=== PATIENT | female | born 1965 | race Caucasian/White ===

== ENCOUNTER 2018-07-11 16:44 | Inpatient (IN) | payer OTHER ==
[2018-07-11 17:29] LABS: ADD UMIC YES; UR ASCORBIC ACID NEGATIVE (NEGATIVE); UR BACTERIA FEW /HPF (NONE SEEN); UR BILIRUBIN (Dip) NEGATIVE (NEGATIVE); UR BLOOD (Dip) NEGATIVE (NEGATIVE); UR CLARITY CLOUDY (CLEAR); UR COLOR YELLOW (YELLOW); UR GLUCOSE (Dip) NEGATIVE (NEGATIVE); UR KETONES (Dip) NEGATIVE (NEGATIVE); UR LEUKOCYTE ESTERASE (Dip) 3+ Leu/ul (NEGATIVE); UR NITRITE (Dip) NEGATIVE (NEGATIVE); UR RBC 4 /HPF (0-5); UR TOTAL PROTEIN (Dip) NEGATIVE (NEGATIVE); UR UROBILINOGEN (Dip) NEGATIVE (NEGATIVE); UR WBC > 182 /HPF (0-5)
[2018-07-11 17:32] LABS: ADD MAN DIFF? NO
[2018-07-11 17:37] LABS: BASOPHILS % 0.3 % (0.0-2.0); EOSINOPHILS % 0.1 % (0.0-7.0); HEMATOCRIT 35.6 % (37.0-47.0); HEMOGLOBIN 11.7 g/dl (12.0-16.0); LYMPHOCYTES # 1.1 10^3/ul (0.8-2.9); LYMPHOCYTES % 8.5 % (15.0-51.0); MEAN CORPUSCULAR HEMOGLOBIN 28.5 pg (29.0-33.0); MEAN CORPUSCULAR HGB CONC 32.9 g/dl (32.0-37.0); MEAN CORPUSCULAR VOLUME 86.6 fl (82.0-101.0); MEAN PLATELET VOLUME 8.9 fl (7.4-10.4); MONOCYTE # 0.6 10^3/ul (0.3-0.9); MONOCYTES % 4.4 % (0.0-11.0); NEUTROPHIL # 11.6 10^3/ul (1.6-7.5); PLATELET COUNT 390 10^3/UL (140-415); RED BLOOD COUNT 4.11 10^6/ul (4.20-5.40); RED CELL DISTRIBUTION WIDTH 14.6 % (11.5-14.5)
[2018-07-11 17:37] LABS: WHITE BLOOD COUNT 13.4 10^3/ul (4.8-10.8)
[2018-07-11] MEDS: ONDANSETRON 4 MG INJ IV (17:42)
[2018-07-11] MEDS: SODIUM CHLORIDE 0.9% 1L BAG IV* (17:43)
[2018-07-11] MEDS: KETOROLAC 15 MG INJ IV (17:43)
[2018-07-11] MEDS: ACETAMINOPHEN 325 MG TAB PO (17:44)
[2018-07-11] MEDS: PIPER-TAZO 3.375 GM IV (PMX) 100 ML IVPB ×2 (17:45→23:52)
[2018-07-11 17:56] LABS: ALANINE AMINOTRANSFERASE 38 IU/L (13-69); ALBUMIN 3.5 g/dl (3.3-4.9); ALBUMIN/GLOBULIN RATIO 0.79; ALKALINE PHOSPHATASE 124 IU/L (42-121); ANION GAP 14 (5-13); ASPARTATE AMINO TRANSFERASE 44 IU/L (15-46); BILIRUBIN,INDIRECT 0.1 mg/dl (0-1.1); BILIRUBIN,TOTAL 0.1 mg/dl (0.2-1.3); BLOOD UREA NITROGEN 12 mg/dl (7-20); CALCIUM 9.3 mg/dl (8.4-10.2); CARBON DIOXIDE 25 mmol/L (21-31); CHLORIDE 100 mmol/L (97-110); CREATININE 0.78 mg/dl (0.44-1.00); Estimated GFR > 60 mL/min (>60); GLUCOSE 130 mg/dl (70-220); INR 1.02; LIPASE 209 U/L (23-300); POTASSIUM 3.9 mmol/L (3.5-5.1); PROTIME 13.5 Sec (11.9-14.9); PT RATIO 1.1; SODIUM 139 mmol/L (135-144); TOTAL PROTEIN 7.9 g/dl (6.1-8.1)
[2018-07-11 17:57] LABS: PARTIAL THROMBOPLASTIN TIME 29.5 Sec (23.0-35.0)
[2018-07-11] MEDS ORDERED: LORAZEPAM 2 MG INJ IV (19:30)
[2018-07-11] MEDS ORDERED: DOCUSATE SODIUM 100 MG CAP PO (19:30)
[2018-07-11] MEDS ORDERED: ALBUTEROL/IPRATROPIUM (NEB) 3 ML AMP HHN (19:30)
[2018-07-11] MEDS ORDERED: morphine 2 MG INJ IV (19:30)
[2018-07-11] MEDS ORDERED: NA PHOSPHATE/BIPHOS 133 ML ENEMA PR (19:30)
[2018-07-11] MEDS ORDERED: NACL 0.9% 3 ML SYG IV (19:30)
[2018-07-11] MEDS ORDERED: NITROGLYCERIN (SL) 0.4 MG TAB SL (19:30)
[2018-07-11] MEDS ORDERED: ACETAMINOPHEN 325 MG TAB PO (20:00)
[2018-07-11] MEDS ORDERED: ONDANSETRON 4 MG INJ IV (20:00)
[2018-07-11] MEDS: HYDROmorphONE 0.5 MG/0.5 ML SYG IV (20:16)
[2018-07-11] MEDS: SOD CHLORIDE 0.9% 1,000 ML IV (20:27)
[2018-07-11] MEDS: HEPARIN SODIUM 5,000 UNIT/ML VIAL SC (21:25)
[2018-07-11 21:27] LABS: LACTIC ACID 1.1 mmol/L (0.5-2.0)
[2018-07-11 22:59] LABS: LACTIC ACID 1.2 mmol/L (0.5-2.0)
[2018-07-12] MEDS: ACETAMINOPHEN 325 MG TAB PO (02:06)
[2018-07-12 02:21] LABS: LACTIC ACID 1.3 mmol/L (0.5-2.0)
[2018-07-12] MEDS: SOD CHLORIDE 0.9% 1,000 ML IV ×3 (05:23→18:25)
[2018-07-12] MEDS: PANTOPRAZOLE 40 MG INJ IV (05:24)
[2018-07-12] MEDS: PIPER-TAZO 3.375 GM IV (PMX) 100 ML IVPB ×3 (05:24→18:25)
[2018-07-12] MEDS ORDERED: HEPARIN 5,000 UNIT/0.5 ML VIAL (07:37)
[2018-07-12] MEDS: HYDROCODONE/APAP (5/325) TAB PO ×4 (07:45→22:27)
[2018-07-12] MEDS: HEPARIN SODIUM 5,000 UNIT/ML VIAL SC (08:26)
[2018-07-12 08:51] LABS: ADD MAN DIFF? NO
[2018-07-12 08:54] LABS: BASOPHILS % 0.2 % (0.0-2.0); EOSINOPHILS % 0.1 % (0.0-7.0); HEMATOCRIT 33.3 % (37.0-47.0); HEMOGLOBIN 10.7 g/dl (12.0-16.0); LYMPHOCYTES # 1.5 10^3/ul (0.8-2.9); LYMPHOCYTES % 9.6 % (15.0-51.0); MEAN CORPUSCULAR HEMOGLOBIN 28.3 pg (29.0-33.0); MEAN CORPUSCULAR HGB CONC 32.1 g/dl (32.0-37.0); MEAN CORPUSCULAR VOLUME 88.1 fl (82.0-101.0); MEAN PLATELET VOLUME 9.4 fl (7.4-10.4); MONOCYTE # 0.9 10^3/ul (0.3-0.9); MONOCYTES % 5.7 % (0.0-11.0); NEUTROPHIL # 12.8 10^3/ul (1.6-7.5); NEUTROPHILS % 83.8 % (39.0-77.0); PLATELET COUNT 344 10^3/UL (140-415); RED BLOOD COUNT 3.78 10^6/ul (4.20-5.40); RED CELL DISTRIBUTION WIDTH 14.8 % (11.5-14.5)
[2018-07-12 08:54] LABS: WHITE BLOOD COUNT 15.2 10^3/ul (4.8-10.8)
[2018-07-12 09:09] LABS: HEMOGLOBIN A1C 5.4 % (0-5.9)
[2018-07-12 09:13] LABS: ANION GAP 6 (5-13); BLOOD UREA NITROGEN 8 mg/dl (7-20); CALCIUM 8.1 mg/dl (8.4-10.2); CARBON DIOXIDE 24 mmol/L (21-31); CHLORIDE 109 mmol/L (97-110); Estimated GFR > 60 mL/min (>60); GLUCOSE 98 mg/dl (70-220); MAGNESIUM 2.1 mg/dl (1.7-2.5); PHOSPHORUS 3.5 mg/dl (2.5-4.9); POTASSIUM 3.6 mmol/L (3.5-5.1); SODIUM 139 mmol/L (135-144)
[2018-07-12 09:18] LABS: LACTIC ACID 0.8 mmol/L (0.5-2.0)
[2018-07-12 12:18] LABS: CHOL/HDL RATIO 4.4 RATIO; HDL CHOLESTEROL 21 mg/dl (37-92); LDL CHOLESTEROL,CALCULATED 56 mg/dl; TRIGLYCERIDES 80 mg/dl (0-149)
[2018-07-12 12:18] LABS: CHOLESTEROL 93 mg/dl (100-200)
[2018-07-12 14:48] LABS: LACTIC ACID 0.9 mmol/L (0.5-2.0)
[2018-07-13] MEDS: PIPER-TAZO 3.375 GM IV (PMX) 100 ML IVPB ×2 (00:07→06:08)
[2018-07-13] MEDS: SOD CHLORIDE 0.9% 1,000 ML IV ×4 (01:28→21:28)
[2018-07-13] MEDS: HYDROCODONE/APAP (5/325) TAB PO ×5 (04:16→22:49)
[2018-07-13 05:44] LABS: ADD MAN DIFF? NO
[2018-07-13 05:53] LABS: WHITE BLOOD COUNT 8.8 10^3/ul (4.8-10.8)
[2018-07-13 05:53] LABS: BASOPHILS % 0.3 % (0.0-2.0); EOSINOPHILS # 0.1 10^3/ul (0.0-0.5); EOSINOPHILS % 1.5 % (0.0-7.0); HEMATOCRIT 35.8 % (37.0-47.0); HEMOGLOBIN 11.3 g/dl (12.0-16.0); LYMPHOCYTES # 1.7 10^3/ul (0.8-2.9); LYMPHOCYTES % 19.5 % (15.0-51.0); MEAN CORPUSCULAR HEMOGLOBIN 28.1 pg (29.0-33.0); MEAN CORPUSCULAR HGB CONC 31.6 g/dl (32.0-37.0); MEAN CORPUSCULAR VOLUME 89.1 fl (82.0-101.0); MEAN PLATELET VOLUME 9.6 fl (7.4-10.4); MONOCYTE # 0.7 10^3/ul (0.3-0.9); MONOCYTES % 8.2 % (0.0-11.0); NEUTROPHIL # 6.2 10^3/ul (1.6-7.5); NEUTROPHILS % 69.9 % (39.0-77.0); PLATELET COUNT 377 10^3/UL (140-415); RED BLOOD COUNT 4.02 10^6/ul (4.20-5.40); RED CELL DISTRIBUTION WIDTH 14.7 % (11.5-14.5)
[2018-07-13] MEDS: PANTOPRAZOLE 40 MG INJ IV (06:09)
[2018-07-13 06:15] LABS: ANION GAP 7 (5-13); BLOOD UREA NITROGEN 7 mg/dl (7-20); CALCIUM 8.8 mg/dl (8.4-10.2); CARBON DIOXIDE 26 mmol/L (21-31); CHLORIDE 107 mmol/L (97-110); CREATININE 0.65 mg/dl (0.44-1.00); Estimated GFR > 60 mL/min (>60); GLUCOSE 86 mg/dl (70-220); POTASSIUM 4.3 mmol/L (3.5-5.1); SODIUM 140 mmol/L (135-144)
[2018-07-13] MEDS: CEFTRIAXONE 1 GM/50 ML (PMX) 50 ML IVPB (12:45)
[2018-07-13] MEDS: MAGNESIUM HYDROXIDE 30ML CUP PO (20:31)
[2018-07-14] MEDS: HYDROCODONE/APAP (5/325) TAB PO ×4 (02:43→21:11)
[2018-07-14] MEDS: SOD CHLORIDE 0.9% 1,000 ML IV ×3 (02:44→23:42)
[2018-07-14] MEDS: PANTOPRAZOLE 40 MG INJ IV (05:46)
[2018-07-14 06:37] LABS: ADD MAN DIFF? NO
[2018-07-14 06:44] LABS: WHITE BLOOD COUNT 7.6 10^3/ul (4.8-10.8)
[2018-07-14 06:44] LABS: BASOPHILS % 0.4 % (0.0-2.0); EOSINOPHILS # 0.2 10^3/ul (0.0-0.5); HEMATOCRIT 34.9 % (37.0-47.0); HEMOGLOBIN 11.4 g/dl (12.0-16.0); LYMPHOCYTES # 2.1 10^3/ul (0.8-2.9); LYMPHOCYTES % 27.3 % (15.0-51.0); MEAN CORPUSCULAR HEMOGLOBIN 28.6 pg (29.0-33.0); MEAN CORPUSCULAR HGB CONC 32.7 g/dl (32.0-37.0); MEAN CORPUSCULAR VOLUME 87.5 fl (82.0-101.0); MEAN PLATELET VOLUME 9.7 fl (7.4-10.4); MONOCYTE # 0.6 10^3/ul (0.3-0.9); MONOCYTES % 7.4 % (0.0-11.0); NEUTROPHIL # 4.8 10^3/ul (1.6-7.5); NEUTROPHILS % 62.4 % (39.0-77.0); PLATELET COUNT 401 10^3/UL (140-415); RED BLOOD COUNT 3.99 10^6/ul (4.20-5.40); RED CELL DISTRIBUTION WIDTH 14.7 % (11.5-14.5)
[2018-07-14 07:09] LABS: ANION GAP 10 (5-13); BLOOD UREA NITROGEN 9 mg/dl (7-20); CARBON DIOXIDE 25 mmol/L (21-31); CHLORIDE 106 mmol/L (97-110); CREATININE 0.63 mg/dl (0.44-1.00); Estimated GFR > 60 mL/min (>60); GLUCOSE 104 mg/dl (70-220); POTASSIUM 4.1 mmol/L (3.5-5.1); SODIUM 141 mmol/L (135-144)
[2018-07-14] MEDS: CEFTRIAXONE 1 GM/50 ML (PMX) 50 ML IVPB (12:05)
[2018-07-15] MEDS: HYDROCODONE/APAP (5/325) TAB PO ×4 (01:08→20:52)
[2018-07-15] MEDS: PANTOPRAZOLE 40 MG INJ IV (05:35)
[2018-07-15 06:02] LABS: ADD MAN DIFF? NO
[2018-07-15 06:09] LABS: BASOPHILS % 0.7 % (0.0-2.0); EOSINOPHILS # 0.2 10^3/ul (0.0-0.5); EOSINOPHILS % 2.7 % (0.0-7.0); HEMATOCRIT 35.5 % (37.0-47.0); HEMOGLOBIN 11.5 g/dl (12.0-16.0); LYMPHOCYTES # 1.8 10^3/ul (0.8-2.9); LYMPHOCYTES % 31.6 % (15.0-51.0); MEAN CORPUSCULAR HEMOGLOBIN 28.6 pg (29.0-33.0); MEAN CORPUSCULAR HGB CONC 32.4 g/dl (32.0-37.0); MEAN CORPUSCULAR VOLUME 88.3 fl (82.0-101.0); MEAN PLATELET VOLUME 9.6 fl (7.4-10.4); MONOCYTE # 0.4 10^3/ul (0.3-0.9); MONOCYTES % 7.9 % (0.0-11.0); NEUTROPHIL # 3.1 10^3/ul (1.6-7.5); NEUTROPHILS % 56.7 % (39.0-77.0); PLATELET COUNT 386 10^3/UL (140-415); RED BLOOD COUNT 4.02 10^6/ul (4.20-5.40); RED CELL DISTRIBUTION WIDTH 14.6 % (11.5-14.5)
[2018-07-15 06:09] LABS: WHITE BLOOD COUNT 5.5 10^3/ul (4.8-10.8)
[2018-07-15 06:34] LABS: ANION GAP 8 (5-13); BLOOD UREA NITROGEN 9 mg/dl (7-20); CALCIUM 9.1 mg/dl (8.4-10.2); CARBON DIOXIDE 27 mmol/L (21-31); CHLORIDE 108 mmol/L (97-110); CREATININE 0.58 mg/dl (0.44-1.00); Estimated GFR > 60 mL/min (>60); GLUCOSE 104 mg/dl (70-220); SODIUM 143 mmol/L (135-144)
[2018-07-15 07:03] LABS: POTASSIUM 4.6 mmol/L (3.5-5.1)
[2018-07-15] MEDS: SOD CHLORIDE 0.9% 1,000 ML IV ×2 (10:42→20:52)
[2018-07-15] MEDS: CEFTRIAXONE 1 GM/50 ML (PMX) 50 ML IVPB (12:05)
[2018-07-15] MEDS: MAGNESIUM HYDROXIDE 30ML CUP PO (18:45)
[2018-07-16] MEDS: PANTOPRAZOLE 40 MG INJ IV (05:51)
[2018-07-16] MEDS: HYDROCODONE/APAP (5/325) TAB PO ×2 (05:52→13:55)
[2018-07-16] MEDS: ONDANSETRON 4 MG INJ IV ×3 (05:54→22:06)
[2018-07-16] MEDS: SOD CHLORIDE 0.9% 1,000 ML IV ×2 (06:32→19:02)
[2018-07-16 07:06] LABS: ADD MAN DIFF? NO
[2018-07-16 07:16] LABS: WHITE BLOOD COUNT 4.7 10^3/ul (4.8-10.8)
[2018-07-16 07:16] LABS: BASOPHILS % 0.6 % (0.0-2.0); EOSINOPHILS # 0.1 10^3/ul (0.0-0.5); EOSINOPHILS % 2.5 % (0.0-7.0); HEMATOCRIT 36.5 % (37.0-47.0); HEMOGLOBIN 11.8 g/dl (12.0-16.0); LYMPHOCYTES # 1.7 10^3/ul (0.8-2.9); LYMPHOCYTES % 36.2 % (15.0-51.0); MEAN CORPUSCULAR HEMOGLOBIN 28.4 pg (29.0-33.0); MEAN CORPUSCULAR HGB CONC 32.3 g/dl (32.0-37.0); MEAN CORPUSCULAR VOLUME 87.7 fl (82.0-101.0); MEAN PLATELET VOLUME 9.5 fl (7.4-10.4); MONOCYTE # 0.4 10^3/ul (0.3-0.9); MONOCYTES % 8.5 % (0.0-11.0); NEUTROPHIL # 2.5 10^3/ul (1.6-7.5); NEUTROPHILS % 51.8 % (39.0-77.0); PLATELET COUNT 375 10^3/UL (140-415); RED BLOOD COUNT 4.16 10^6/ul (4.20-5.40); RED CELL DISTRIBUTION WIDTH 14.9 % (11.5-14.5)
[2018-07-16 07:38] LABS: ANION GAP 10 (5-13); BLOOD UREA NITROGEN 7 mg/dl (7-20); CALCIUM 9.3 mg/dl (8.4-10.2); CARBON DIOXIDE 28 mmol/L (21-31); CHLORIDE 107 mmol/L (97-110); CREATININE 0.57 mg/dl (0.44-1.00); Estimated GFR > 60 mL/min (>60); GLUCOSE 96 mg/dl (70-220); POTASSIUM 4.3 mmol/L (3.5-5.1); SODIUM 145 mmol/L (135-144)
[2018-07-16] MEDS: CEFTRIAXONE 1 GM/50 ML (PMX) 50 ML IVPB (12:03)
[2018-07-16] MEDS: ACETAMINOPHEN 325 MG TAB PO (21:03)
[2018-07-17] MEDS: SOD CHLORIDE 0.9% 1,000 ML IV ×2 (05:13→16:45)
[2018-07-17 06:32] LABS: ADD MAN DIFF? NO
[2018-07-17 06:37] LABS: WHITE BLOOD COUNT 4.7 10^3/ul (4.8-10.8)
[2018-07-17 06:37] LABS: BASOPHILS % 0.4 % (0.0-2.0); EOSINOPHILS # 0.1 10^3/ul (0.0-0.5); EOSINOPHILS % 2.3 % (0.0-7.0); HEMATOCRIT 36.7 % (37.0-47.0); HEMOGLOBIN 11.9 g/dl (12.0-16.0); LYMPHOCYTES # 1.7 10^3/ul (0.8-2.9); LYMPHOCYTES % 36.7 % (15.0-51.0); MEAN CORPUSCULAR HEMOGLOBIN 28.5 pg (29.0-33.0); MEAN CORPUSCULAR HGB CONC 32.4 g/dl (32.0-37.0); MEAN CORPUSCULAR VOLUME 87.8 fl (82.0-101.0); MEAN PLATELET VOLUME 9.7 fl (7.4-10.4); MONOCYTE # 0.4 10^3/ul (0.3-0.9); MONOCYTES % 9.3 % (0.0-11.0); NEUTROPHIL # 2.4 10^3/ul (1.6-7.5); NEUTROPHILS % 50.7 % (39.0-77.0); PLATELET COUNT 334 10^3/UL (140-415); RED BLOOD COUNT 4.18 10^6/ul (4.20-5.40)
[2018-07-17] MEDS: PANTOPRAZOLE 40 MG INJ IV (06:49)
[2018-07-17] MEDS: ACETAMINOPHEN 325 MG TAB PO ×2 (06:49→20:57)
[2018-07-17 07:06] LABS: ANION GAP 9 (5-13); BLOOD UREA NITROGEN 6 mg/dl (7-20); CALCIUM 9.6 mg/dl (8.4-10.2); CARBON DIOXIDE 26 mmol/L (21-31); CHLORIDE 107 mmol/L (97-110); CREATININE 0.59 mg/dl (0.44-1.00); Estimated GFR > 60 mL/min (>60); GLUCOSE 106 mg/dl (70-220); POTASSIUM 4.5 mmol/L (3.5-5.1); SODIUM 142 mmol/L (135-144)
[2018-07-17] MEDS: CEFTRIAXONE 1 GM/50 ML (PMX) 50 ML IVPB (12:39)
[2018-07-18] MEDS: SOD CHLORIDE 0.9% 1,000 ML IV ×4 (02:31→23:07)
[2018-07-18 05:21] LABS: ADD MAN DIFF? NO; HAAIG REFLEX REFLEX FILED
[2018-07-18 05:25] LABS: WHITE BLOOD COUNT 5.5 10^3/ul (4.8-10.8)
[2018-07-18 05:25] LABS: BASOPHILS % 0.5 % (0.0-2.0); EOSINOPHILS # 0.1 10^3/ul (0.0-0.5); HEMATOCRIT 36.2 % (37.0-47.0); HEMOGLOBIN 11.7 g/dl (12.0-16.0); LYMPHOCYTES % 35.4 % (15.0-51.0); MEAN CORPUSCULAR HEMOGLOBIN 28.5 pg (29.0-33.0); MEAN CORPUSCULAR HGB CONC 32.3 g/dl (32.0-37.0); MEAN CORPUSCULAR VOLUME 88.1 fl (82.0-101.0); MEAN PLATELET VOLUME 9.5 fl (7.4-10.4); MONOCYTE # 0.5 10^3/ul (0.3-0.9); MONOCYTES % 9.1 % (0.0-11.0); NEUTROPHIL # 2.9 10^3/ul (1.6-7.5); NEUTROPHILS % 52.6 % (39.0-77.0); PLATELET COUNT 307 10^3/UL (140-415); RED BLOOD COUNT 4.11 10^6/ul (4.20-5.40); RED CELL DISTRIBUTION WIDTH 14.9 % (11.5-14.5)
[2018-07-18 05:46] LABS: ANION GAP 8 (5-13); BLOOD UREA NITROGEN 8 mg/dl (7-20); CALCIUM 9.6 mg/dl (8.4-10.2); CARBON DIOXIDE 27 mmol/L (21-31); CHLORIDE 109 mmol/L (97-110); Estimated GFR > 60 mL/min (>60); GLUCOSE 116 mg/dl (70-220); POTASSIUM 4.3 mmol/L (3.5-5.1); SODIUM 144 mmol/L (135-144)
[2018-07-18] MEDS: ACETAMINOPHEN 325 MG TAB PO (06:12)
[2018-07-18 06:14] LABS: HEPATITIS B SURFACE ANTIGEN NEGATIVE (NEGATIVE)
[2018-07-18 06:33] LABS: HEPATITIS B CORE ANTIBODY NEGATIVE (NEGATIVE); HEPATITIS C VIRAL ANTIBODY NEGATIVE (NEGATIVE)
[2018-07-18] MEDS ORDERED: KETOROLAC 30 MG INJ IM (11:41)
[2018-07-18] MEDS: KETOROLAC 30 MG INJ IV (11:56)
[2018-07-18] MEDS: CEFTRIAXONE 1 GM/50 ML (PMX) 50 ML IVPB (11:59)
[2018-07-18] MEDS ORDERED: HYDROmorphONE 0.5 MG/0.5 ML SYG IV (12:00)
[2018-07-18] MEDS ORDERED: IOHEXOL 300MG/ML 30 ML BTL ×2 (17:52→19:07)
[2018-07-18] MEDS ORDERED: FENTAnyl 50 MCG/ML VIAL (20:20)
[2018-07-18] MEDS ORDERED: MIDAZOLAM 1 MG/ML 2 ML INJ (20:20)
[2018-07-18] MEDS: ERTAPENEM SODIUM 1 GM in SOD CHLORIDE 0.9% 100 ML IVPB (21:00)
[2018-07-18] MEDS ORDERED: PROPOFOL 20 ML (21:37)
[2018-07-18] MEDS ORDERED: CEFAZOLIN 1 GM INJ (21:37)
[2018-07-18] MEDS ORDERED: ONDANSETRON 4 MG INJ (21:37)
[2018-07-18] MEDS ORDERED: LIDOCAINE 2% (SDV) 5 ML INJ (21:37)
[2018-07-18] MEDS ORDERED: HYDROmorphONE 1 MG/5 ML IV SYRINGE IV (22:00)
[2018-07-18] MEDS ORDERED: hydrALAzine 20 MG INJ IV (22:00)
[2018-07-18] MEDS ORDERED: METOCLOPRAMIDE 10 MG INJ IV (22:00)
[2018-07-18] MEDS: hydrALAzine 20 MG INJ IV (22:00)
[2018-07-18] MEDS ORDERED: DIPHENHYDRAMINE 50 MG INJ IV (22:00)
[2018-07-18] MEDS ORDERED: MEPERIDINE 25 MG INJ IV (22:00)
[2018-07-18] MEDS: FENTAnyl 50 MCG/ML VIAL IV ×3 (22:11→22:44)
[2018-07-18] MEDS: ONDANSETRON 4 MG INJ IV ×2 (22:11→23:21)
[2018-07-18] MEDS: HYDROmorphONE 1 MG/5 ML IV SYRINGE IV ×3 (22:11→22:44)
[2018-07-19] MEDS: HYDROCODONE/APAP (5/325) TAB PO ×4 (03:33→21:43)
[2018-07-19 06:21] LABS: ADD MAN DIFF? NO
[2018-07-19 06:32] LABS: WHITE BLOOD COUNT 6.3 10^3/ul (4.8-10.8)
[2018-07-19 06:32] LABS: BASOPHILS % 0.3 % (0.0-2.0); EOSINOPHILS # 0.1 10^3/ul (0.0-0.5); EOSINOPHILS % 0.8 % (0.0-7.0); HEMATOCRIT 36.6 % (37.0-47.0); HEMOGLOBIN 11.7 g/dl (12.0-16.0); LYMPHOCYTES # 1.8 10^3/ul (0.8-2.9); LYMPHOCYTES % 28.9 % (15.0-51.0); MEAN CORPUSCULAR HEMOGLOBIN 28.3 pg (29.0-33.0); MEAN CORPUSCULAR VOLUME 88.4 fl (82.0-101.0); MEAN PLATELET VOLUME 9.6 fl (7.4-10.4); MONOCYTE # 0.4 10^3/ul (0.3-0.9); MONOCYTES % 6.7 % (0.0-11.0); PLATELET COUNT 300 10^3/UL (140-415); RED BLOOD COUNT 4.14 10^6/ul (4.20-5.40); RED CELL DISTRIBUTION WIDTH 15.2 % (11.5-14.5)
[2018-07-19 06:52] LABS: ANION GAP 11 (5-13); BLOOD UREA NITROGEN 8 mg/dl (7-20); CALCIUM 9.2 mg/dl (8.4-10.2); CARBON DIOXIDE 26 mmol/L (21-31); CHLORIDE 105 mmol/L (97-110); CREATININE 0.62 mg/dl (0.44-1.00); Estimated GFR > 60 mL/min (>60); GLUCOSE 93 mg/dl (70-220); POTASSIUM 4.4 mmol/L (3.5-5.1); SODIUM 142 mmol/L (135-144)
[2018-07-19] MEDS: SOD CHLORIDE 0.9% 1,000 ML IV ×2 (07:28→09:38)
[2018-07-19] MEDS: CEFTRIAXONE 1 GM/50 ML (PMX) 50 ML IVPB (11:26)
[2018-07-19] MEDS: ACETAMINOPHEN 325 MG TAB PO (11:28)
[2018-07-19] MEDS: KETOROLAC 30 MG INJ IV (13:17)
[2018-07-20] MEDS: HYDROCODONE/APAP (5/325) TAB PO ×2 (01:52→11:26)
[2018-07-20] MEDS: CEFTRIAXONE 1 GM/50 ML (PMX) 50 ML IVPB (11:26)
== END 2018-07-20 12:40 | disposition home or self-care (01) | DRG 854 ==
LOC: 2NE 07-13 17:53 → E/R 16:44 → 2NE 20:00
PROC: 0TC68ZZ Extirpation of Matter from Right Ureter, Via Natural or Artificial Opening Endoscopic (ICD-10-PCS; principal; 2018-07-18 19:00)
PROC: 0T768DZ Dilation of Right Ureter with Intraluminal Device, Via Natural or Artificial Opening Endoscopic (ICD-10-PCS; 2018-07-18 19:00)
DX: A41.9 Sepsis, unspecified organism (principal); N13.6 Pyonephrosis; N39.0 Urinary tract infection, site not specified; N20.1 Calculus of ureter; I10 Essential (primary) hypertension; K80.20 Calculus of gallbladder without cholecystitis without obstruction; K76.0 Fatty (change of) liver, not elsewhere classified; B96.20 Unspecified Escherichia coli [E. coli] as the cause of diseases classified elsewhere; Z87.442 Personal history of urinary calculi
CPT/HCPCS: 36415; 71045; 74018; 74176; 74430; 76775; 80048; 80053; 80061; 81001; 83036; 83605; 83690; 83735; 84100; 84439; 84443; 85025; 85610; 85730; 86704; 86709; 86803; 87040; 87086; 87340; 88300; 93005; 96374; 96375; 99291-25

== ENCOUNTER 2018-10-17 11:07 | Observation (INO) | payer OTHER ==
[~2018-10-17 11:07] MED LIST: DESFLURANE 15 MIN
[2018-10-17] MEDS: BUPIVACAINE 0.25% (MPF) 30 ML INJ INJ (12:05)
[2018-10-17] MEDS ORDERED: BUPIVACAINE 0.5% (SDV) 30 ML INJ (12:07)
[2018-10-17] MEDS ORDERED: BUPIVACAINE 0.25% (MPF) 30 ML INJ (12:13)
[2018-10-17] MEDS ORDERED: SOD CHLORIDE 0.9% 1,000 ML IV (13:00)
[2018-10-17] MEDS ORDERED: CEFAZOLIN 1 GM/50 ML (PMX) 50 ML IVPB (13:00)
[2018-10-17] MEDS ORDERED: PROPOFOL 20 ML (13:07)
[2018-10-17] MEDS ORDERED: ROCURONIUM 50 MG INJ (13:07)
[2018-10-17] MEDS ORDERED: MIDAZOLAM 1 MG/ML 2 ML INJ (13:07)
[2018-10-17] MEDS ORDERED: ROPIVACAINE 0.5 % 30 ML VIAL (13:12)
[2018-10-17] MEDS ORDERED: CEFAZOLIN 1 GM INJ (14:04)
[2018-10-17] MEDS ORDERED: DEXAMETHASONE 4 MG/ML 5 ML INJ (14:06)
[2018-10-17] MEDS ORDERED: ONDANSETRON 4 MG INJ (14:06)
[2018-10-17] MEDS ORDERED: SUGAMMADEX SODIUM 200 MG/2 ML VIAL IV (14:56)
[2018-10-17] MEDS ORDERED: HYDROCODONE/APAP (5/325) TAB PO (15:30)
[2018-10-17] MEDS ORDERED: morphine 2 MG INJ IV (15:30)
[2018-10-17] MEDS ORDERED: ONDANSETRON 4 MG INJ IV (15:30)
[2018-10-17] MEDS ORDERED: HYDROmorphONE 1 MG/5 ML IV SYRINGE IV ×3 (15:31→16:00)
[2018-10-17] MEDS: HYDROmorphONE 1 MG/5 ML IV SYRINGE IV (15:55)
[2018-10-17] MEDS ORDERED: HYDROmorphONE 0.5 MG/0.5 ML SYG IV (16:29)
[2018-10-17] MEDS: HYDROCODONE/APAP (5/325) TAB PO (17:18)
== END 2018-10-17 18:03 | disposition home or self-care (01) ==
LOC: SDS 11:07 → REC 17:08
DX: K80.10 Calculus of gallbladder with chronic cholecystitis without obstruction (principal); K74.60 Unspecified cirrhosis of liver; K66.0 Peritoneal adhesions (postprocedural) (postinfection); I10 Essential (primary) hypertension; R94.31 Abnormal electrocardiogram [ECG] [EKG]; R10.11 Right upper quadrant pain
CPT/HCPCS: 47379; 88304; 88307; 88313; 99217

== ENCOUNTER 2019-02-18 10:28 | Inpatient (IN) | payer OTHER ==
[2019-02-18] MEDS: SOD CHLORIDE 0.9% 1,000 ML IV ×2 (11:23→15:33)
[2019-02-18] MEDS: ONDANSETRON 4 MG INJ IV ×2 (11:23→18:17)
[2019-02-18] MEDS: morphine 2 MG INJ IV ×2 (11:23→15:33)
[2019-02-18 11:26] LABS: ADD MAN DIFF? NO
[2019-02-18 11:27] LABS: BASOPHILS % 0.3 % (0.0-2.0); EOSINOPHILS % 0.1 % (0.0-7.0); HEMATOCRIT 44.2 % (37.0-47.0); HEMOGLOBIN 14.6 g/dl (12.0-16.0); LYMPHOCYTES # 1.1 10^3/ul (0.8-2.9); LYMPHOCYTES % 7.3 % (15.0-51.0); MEAN CORPUSCULAR HEMOGLOBIN 28.4 pg (29.0-33.0); MEAN PLATELET VOLUME 10.4 fl (7.4-10.4); MONOCYTE # 0.8 10^3/ul (0.3-0.9); MONOCYTES % 5.2 % (0.0-11.0); NEUTROPHILS % 86.6 % (39.0-77.0); PLATELET COUNT 187 10^3/UL (140-415); RED BLOOD COUNT 5.14 10^6/ul (4.20-5.40); RED CELL DISTRIBUTION WIDTH 12.9 % (11.5-14.5)
[2019-02-18 11:45] LABS: ALANINE AMINOTRANSFERASE 47 IU/L (13-69); ALBUMIN 4.5 g/dl (3.3-4.9); ALBUMIN/GLOBULIN RATIO 1.36; ALKALINE PHOSPHATASE 78 IU/L (42-121); ANION GAP 11 (5-13); ASPARTATE AMINO TRANSFERASE 39 IU/L (15-46); BLOOD UREA NITROGEN 13 mg/dl (7-20); CALCIUM 9.4 mg/dl (8.4-10.2); CARBON DIOXIDE 24 mmol/L (21-31); CHLORIDE 107 mmol/L (97-110); CREATININE 0.82 mg/dl (0.44-1.00); Estimated GFR > 60 mL/min (>60); GLUCOSE 149 mg/dl (70-220); LIPASE 62 U/L (23-300); POTASSIUM 3.6 mmol/L (3.5-5.1); SODIUM 142 mmol/L (135-144); TOTAL PROTEIN 7.8 g/dl (6.1-8.1)
[2019-02-18] MEDS: HYDROmorphONE 0.5 MG/0.5 ML SYG IV (11:50)
[2019-02-18 12:24] LABS: URINE BLOOD (Dip) POC Trace-intact (NEGATIVE); URINE GLUCOSE (Dip) POC Negative (NEGATIVE); URINE KETONES (Dip) POC Trace (NEGATIVE); URINE LEUKOCYTE EST (Dip) POC 1+ (NEGATIVE); URINE NITRITE (Dip) POC Positive (NEGATIVE); URINE TOTAL PROTEIN POC Negative (NEGATIVE)
[2019-02-18] MEDS: CEFTRIAXONE 1 GM/50 ML (PMX) 50 ML IVPB (13:09)
[2019-02-18] MEDS ORDERED: BISACODYL 10 MG SUPP PR (14:30)
[2019-02-18] MEDS ORDERED: HYDROCODONE/APAP (5/325) TAB PO (14:30)
[2019-02-18] MEDS ORDERED: ACETAMINOPHEN 325 MG TAB PO (14:30)
[2019-02-18] MEDS ORDERED: NACL 0.9% 3 ML SYG IV (14:30)
[2019-02-18] MEDS ORDERED: hydrOXYzine HCL 25 MG TAB PO (14:30)
[2019-02-18] MEDS ORDERED: ACETAMINOPHEN 650 MG SUPP PR (14:30)
[2019-02-18] MEDS: HYDROmorphONE 1 MG/ML SYG IV ×2 (17:11→21:10)
[2019-02-18] MEDS: CEFTRIAXONE 2 GM/50 ML (PMX) 50 ML IVPB (18:00)
[2019-02-18] MEDS: HEPARIN 5,000 UNIT/1 ML VIAL SC (21:00)
[2019-02-19 05:44] LABS: HEMATOCRIT 43.5 % (37.0-47.0); HEMOGLOBIN 13.9 g/dl (12.0-16.0); MEAN CORPUSCULAR HEMOGLOBIN 27.9 pg (29.0-33.0); MEAN CORPUSCULAR VOLUME 87.2 fl (82.0-101.0); MEAN PLATELET VOLUME 10.7 fl (7.4-10.4); PLATELET COUNT 168 10^3/UL (140-415); RED BLOOD COUNT 4.99 10^6/ul (4.20-5.40); RED CELL DISTRIBUTION WIDTH 13.2 % (11.5-14.5)
[2019-02-19 05:44] LABS: WHITE BLOOD COUNT 19.4 10^3/ul (4.8-10.8)
[2019-02-19 05:52] LABS: ADD MAN DIFF? YES; POSITIVE DIFF @See below
[2019-02-19 06:06] LABS: INR 1.19; PROTIME 15.2 Sec (11.9-14.9); PT RATIO 1.2
[2019-02-19] MEDS: SOD CHLORIDE 0.9% 1,000 ML IV ×2 (06:16→22:33)
[2019-02-19] MEDS: PANTOPRAZOLE 40 MG INJ IV (06:16)
[2019-02-19 06:20] LABS: ALANINE AMINOTRANSFERASE 56 IU/L (13-69); ALBUMIN 3.6 g/dl (3.3-4.9); ALBUMIN/GLOBULIN RATIO 1.16; ALKALINE PHOSPHATASE 59 IU/L (42-121); ANION GAP 7 (5-13); ASPARTATE AMINO TRANSFERASE 44 IU/L (15-46); BILIRUBIN,INDIRECT 1.2 mg/dl (0-1.1); BILIRUBIN,TOTAL 1.2 mg/dl (0.2-1.3); BLOOD UREA NITROGEN 14 mg/dl (7-20); CALCIUM 8.8 mg/dl (8.4-10.2); CARBON DIOXIDE 27 mmol/L (21-31); CHLORIDE 106 mmol/L (97-110); CHOLESTEROL 94 mg/dl (100-200); Estimated GFR > 60 mL/min (>60); GLUCOSE 102 mg/dl (70-220); HDL CHOLESTEROL 46 mg/dl (37-92); LDL CHOLESTEROL,CALCULATED 40 mg/dl; MAGNESIUM 1.8 mg/dl (1.7-2.5); PHOSPHORUS 3.7 mg/dl (2.5-4.9); POTASSIUM 4.6 mmol/L (3.5-5.1); SODIUM 140 mmol/L (135-144); TOTAL PROTEIN 6.7 g/dl (6.1-8.1); TRIGLYCERIDES 41 mg/dl (0-149)
[2019-02-19 06:34] LABS: FREE THYROXINE INDEX (Calc) 2.74 ug/ml (0.65-3.89); T3 UPTAKE 42.8 % (23.5-40.5); T4 (THYROXINE) 6.4 ug/dl (5.5-11.0)
[2019-02-19 06:48] LABS: THYROID STIMULATING HORMONE 0.433 MIU/L (0.465-4.680)
[2019-02-19 07:46] LABS: HEMOGLOBIN A1C 5.3 % (0-5.9)
[2019-02-19] MEDS: LISINOPRIL 20 MG TAB PO (08:57)
[2019-02-19] MEDS: HEPARIN 5,000 UNIT/1 ML VIAL SC ×2 (08:58→22:35)
[2019-02-19 09:42] LABS: ANISOCYTOSIS 1+ (0-0); BAND NEUTROPHILS #M 5.8 10^3/ul (0.0-0.6); BAND NEUTROPHILS % (M) 30 % (0-4); LYMPHOCYTES #M 0.7 10^3/ul (0.8-2.9); LYMPHOCYTES % (M) 4 % (15-51); MONOCYTE #M 0.3 10^3/ul (0.3-0.9); MONOCYTES % (M) 2 % (0-11); PLATELET ESTIMATE NORMAL; POLYCHROMASIA 3+ (0-0); SEG NEUT #M 13.5 10^3/ul (1.6-7.5); SEGMENTED NEUTROPHILS (M) % 64 % (39-77); SMUDGE%M 1 % (0-0)
[2019-02-19] MEDS: CEFTRIAXONE 2 GM/50 ML (PMX) 50 ML IVPB (17:00)
[2019-02-19] MEDS ORDERED: MIDAZOLAM 1 MG/ML 2 ML INJ (17:16)
[2019-02-19] MEDS ORDERED: PROPOFOL 20 ML (17:16)
[2019-02-19] MEDS ORDERED: CEFAZOLIN 1 GM INJ (17:16)
[2019-02-19] MEDS ORDERED: ROCURONIUM 50 MG INJ (17:16)
[2019-02-19] MEDS ORDERED: FENTAnyl 50 MCG/ML VIAL (17:16)
[2019-02-19] MEDS ORDERED: IOHEXOL 300MG/ML 30 ML BTL ×2 (17:27→18:23)
[2019-02-19] MEDS ORDERED: SEVOFLURANE 15 MIN (17:30)
[2019-02-19] MEDS ORDERED: DEXAMETHASONE 4 MG/ML 5 ML INJ (17:49)
[2019-02-19] MEDS ORDERED: METOCLOPRAMIDE 10 MG INJ (17:49)
[2019-02-19] MEDS ORDERED: ONDANSETRON 4 MG INJ (17:49)
[2019-02-19] MEDS ORDERED: KETOROLAC 30 MG INJ (17:49)
[2019-02-19] MEDS ORDERED: MEPERIDINE 100 MG INJ (17:49)
[2019-02-19] MEDS ORDERED: FENTAnyl 50 MCG/ML VIAL IV ×2 (18:00)
[2019-02-19] MEDS ORDERED: EPHEDrine 25 MG/5 ML SYG IV (18:00)
[2019-02-19] MEDS ORDERED: OXYCODONE/ACETAMINOPHEN (5/325) TAB PO (18:00)
[2019-02-19] MEDS ORDERED: HYDROmorphONE 1 MG/5 ML IV SYRINGE IV ×3 (18:00)
[2019-02-19] MEDS ORDERED: DIPHENHYDRAMINE 50 MG INJ IV (18:00)
[2019-02-19] MEDS ORDERED: hydrALAzine 20 MG INJ IV (18:00)
[2019-02-19] MEDS ORDERED: LABETALOL HCL 20MG INJ IV (18:00)
[2019-02-19] MEDS ORDERED: MEPERIDINE 25 MG INJ IV (18:00)
[2019-02-19] MEDS ORDERED: METOCLOPRAMIDE 10 MG INJ IV (18:00)
[2019-02-19] MEDS ORDERED: SUGAMMADEX SODIUM 200 MG/2 ML VIAL IV (18:54)
[2019-02-19] MEDS: ONDANSETRON 4 MG INJ IV (19:59)
[2019-02-19] MEDS: FENTAnyl 50 MCG/ML VIAL IV (19:59)
[2019-02-20] MEDS: HYDROmorphONE 1 MG/ML SYG IV ×2 (08:51→20:29)
[2019-02-20] MEDS: FAMOTIDINE 20 MG INJ IV (08:51)
[2019-02-20] MEDS: HEPARIN 5,000 UNIT/1 ML VIAL SC ×2 (08:52→20:38)
[2019-02-20] MEDS: LISINOPRIL 20 MG TAB PO (08:52)
[2019-02-20] MEDS: morphine 2 MG INJ IV (13:05)
[2019-02-20] MEDS: CEFTRIAXONE 2 GM/50 ML (PMX) 50 ML IVPB (16:19)
[2019-02-20] MEDS: SOD CHLORIDE 0.9% 1,000 ML IV (16:19)
[2019-02-20] MEDS: FAMOTIDINE 20 MG TAB PO (21:00)
[2019-02-21 05:49] LABS: ADD MAN DIFF? NO
[2019-02-21 06:00] LABS: BASOPHILS % 0.3 % (0.0-2.0); EOSINOPHILS % 0.1 % (0.0-7.0); HEMATOCRIT 38.5 % (37.0-47.0); HEMOGLOBIN 12.5 g/dl (12.0-16.0); LYMPHOCYTES # 1.4 10^3/ul (0.8-2.9); MEAN CORPUSCULAR HEMOGLOBIN 28.4 pg (29.0-33.0); MEAN CORPUSCULAR HGB CONC 32.5 g/dl (32.0-37.0); MEAN CORPUSCULAR VOLUME 87.5 fl (82.0-101.0); MEAN PLATELET VOLUME 11.8 fl (7.4-10.4); MONOCYTE # 0.6 10^3/ul (0.3-0.9); MONOCYTES % 5.8 % (0.0-11.0); NEUTROPHIL # 7.9 10^3/ul (1.6-7.5); NEUTROPHILS % 79.2 % (39.0-77.0); PLATELET COUNT 143 10^3/UL (140-415)
[2019-02-21 06:34] LABS: ALANINE AMINOTRANSFERASE 40 IU/L (13-69); ALBUMIN/GLOBULIN RATIO 0.96; ALKALINE PHOSPHATASE 67 IU/L (42-121); ANION GAP 5 (5-13); ASPARTATE AMINO TRANSFERASE 33 IU/L (15-46); BILIRUBIN,INDIRECT 0.3 mg/dl (0-1.1); BILIRUBIN,TOTAL 0.3 mg/dl (0.2-1.3); BLOOD UREA NITROGEN 13 mg/dl (7-20); CALCIUM 8.4 mg/dl (8.4-10.2); CARBON DIOXIDE 27 mmol/L (21-31); CHLORIDE 111 mmol/L (97-110); CREATININE 0.65 mg/dl (0.44-1.00); Estimated GFR > 60 mL/min (>60); GLUCOSE 112 mg/dl (70-220); POTASSIUM 4.4 mmol/L (3.5-5.1); SODIUM 143 mmol/L (135-144); TOTAL PROTEIN 6.1 g/dl (6.1-8.1)
[2019-02-21] MEDS: HYDROmorphONE 1 MG/ML SYG IV (06:54)
[2019-02-21] MEDS: DOCUSATE SODIUM 100 MG CAP PO ×2 (06:56→21:07)
[2019-02-21] MEDS: FAMOTIDINE 20 MG TAB PO ×2 (08:19→21:08)
[2019-02-21] MEDS: SOD CHLORIDE 0.9% 1,000 ML IV (08:19)
[2019-02-21] MEDS: LISINOPRIL 20 MG TAB PO (08:19)
[2019-02-21] MEDS: HEPARIN 5,000 UNIT/1 ML VIAL SC ×2 (08:21→21:09)
[2019-02-21] MEDS: morphine 2 MG INJ IV (14:11)
[2019-02-21] MEDS: MAGNESIUM HYDROXIDE 30ML CUP PO (14:11)
[2019-02-21] MEDS: CEFTRIAXONE 2 GM/50 ML (PMX) 50 ML IVPB (16:52)
[2019-02-22 05:08] LABS: ADD MAN DIFF? NO
[2019-02-22 05:12] LABS: BASOPHILS % 0.3 % (0.0-2.0); EOSINOPHILS % 0.4 % (0.0-7.0); HEMATOCRIT 40.3 % (37.0-47.0); HEMOGLOBIN 13.5 g/dl (12.0-16.0); LYMPHOCYTES % 27.6 % (15.0-51.0); MEAN CORPUSCULAR HEMOGLOBIN 28.2 pg (29.0-33.0); MEAN CORPUSCULAR HGB CONC 33.5 g/dl (32.0-37.0); MEAN CORPUSCULAR VOLUME 84.3 fl (82.0-101.0); MEAN PLATELET VOLUME 11.1 fl (7.4-10.4); MONOCYTE # 0.7 10^3/ul (0.3-0.9); MONOCYTES % 10.1 % (0.0-11.0); NEUTROPHIL # 4.4 10^3/ul (1.6-7.5); NEUTROPHILS % 60.9 % (39.0-77.0); PLATELET COUNT 198 10^3/UL (140-415); RED BLOOD COUNT 4.78 10^6/ul (4.20-5.40); RED CELL DISTRIBUTION WIDTH 12.9 % (11.5-14.5)
[2019-02-22 05:12] LABS: WHITE BLOOD COUNT 7.1 10^3/ul (4.8-10.8)
[2019-02-22 05:18] LABS: ANION GAP 7 (5-13); BLOOD UREA NITROGEN 8 mg/dl (7-20); CALCIUM 8.8 mg/dl (8.4-10.2); CARBON DIOXIDE 24 mmol/L (21-31); CHLORIDE 108 mmol/L (97-110); CREATININE 0.67 mg/dl (0.44-1.00); Estimated GFR > 60 mL/min (>60); GLUCOSE 88 mg/dl (70-220); SODIUM 139 mmol/L (135-144)
[2019-02-22] MEDS: LISINOPRIL 20 MG TAB PO (08:37)
[2019-02-22] MEDS: FAMOTIDINE 20 MG TAB PO (08:37)
[2019-02-22] MEDS: HEPARIN 5,000 UNIT/1 ML VIAL SC (08:41)
[2019-02-22] MEDS: HYDROCODONE/APAP (5/325) TAB PO (08:46)
[2019-02-22] MEDS: morphine 2 MG INJ IV (11:30)
[2019-02-22] MEDS: CEFTRIAXONE 2 GM/50 ML (PMX) 50 ML IVPB (16:28)
== END 2019-02-22 17:45 | disposition home or self-care (01) | DRG 854 ==
LOC: E/R 10:28 → MS1 13:37
PROC: 0T768DZ Dilation of Right Ureter with Intraluminal Device, Via Natural or Artificial Opening Endoscopic (ICD-10-PCS; principal; 2019-02-19 15:30)
DX: A41.9 Sepsis, unspecified organism (principal); N39.0 Urinary tract infection, site not specified; N13.1 Hydronephrosis with ureteral stricture, not elsewhere classified; K74.60 Unspecified cirrhosis of liver; K76.0 Fatty (change of) liver, not elsewhere classified; I10 Essential (primary) hypertension; K80.20 Calculus of gallbladder without cholecystitis without obstruction
CPT/HCPCS: 36415; 71045; 74176; 74420; 80048; 80053; 80061; 81003; 83036; 83690; 83735; 84100; 84436; 84443; 84479; 85025; 85610; 85730; 87040-91; 87086; 93005; 96374; 96375; 99285-25

== ENCOUNTER 2019-02-27 03:16 | Inpatient (IN) | payer OTHER ==
[2019-02-27 04:08] LABS: ADD MAN DIFF? NO
[2019-02-27 04:20] LABS: BASOPHIL # 0.1 10^3/ul (0.0-0.1); BASOPHILS % 0.9 % (0.0-2.0); EOSINOPHILS # 0.2 10^3/ul (0.0-0.5); EOSINOPHILS % 2.3 % (0.0-7.0); HEMATOCRIT 43.2 % (37.0-47.0); HEMOGLOBIN 14.3 g/dl (12.0-16.0); LYMPHOCYTES # 3.1 10^3/ul (0.8-2.9); LYMPHOCYTES % 35.5 % (15.0-51.0); MEAN CORPUSCULAR HEMOGLOBIN 28.2 pg (29.0-33.0); MEAN CORPUSCULAR HGB CONC 33.1 g/dl (32.0-37.0); MEAN CORPUSCULAR VOLUME 85.2 fl (82.0-101.0); MEAN PLATELET VOLUME 9.9 fl (7.4-10.4); MONOCYTE # 0.9 10^3/ul (0.3-0.9); MONOCYTES % 10.6 % (0.0-11.0); NEUTROPHIL # 4.1 10^3/ul (1.6-7.5); NEUTROPHILS % 47.8 % (39.0-77.0); PLATELET COUNT 307 10^3/UL (140-415); RED BLOOD COUNT 5.07 10^6/ul (4.20-5.40); RED CELL DISTRIBUTION WIDTH 12.9 % (11.5-14.5)
[2019-02-27 04:20] LABS: WHITE BLOOD COUNT 8.6 10^3/ul (4.8-10.8)
[2019-02-27 04:25] LABS: ADD UMIC YES; UR ASCORBIC ACID NEGATIVE (NEGATIVE); UR BACTERIA FEW /HPF (NONE SEEN); UR BILIRUBIN (Dip) NEGATIVE (NEGATIVE); UR BLOOD (Dip) 3+ mg/dL (NEGATIVE); UR CLARITY CLEAR (CLEAR); UR COLOR RED (YELLOW); UR GLUCOSE (Dip) 1+ mg/dL (NEGATIVE); UR KETONES (Dip) NEGATIVE (NEGATIVE); UR LEUKOCYTE ESTERASE (Dip) NEGATIVE Leu/ul (NEGATIVE); UR MUCUS FEW /HPF (NONE SEEN); UR NITRITE (Dip) NEGATIVE (NEGATIVE); UR RBC 150 /HPF (0-5); UR SPECIFIC GRAVITY (Dip) 1.005 (1.003-1.030); UR SQUAMOUS EPITHELIAL CELL FEW /HPF (FEW); UR TOTAL PROTEIN (Dip) 2+ mg/dl (NEGATIVE); UR UROBILINOGEN (Dip) NEGATIVE (NEGATIVE); UR WBC 8 /HPF (0-5)
[2019-02-27 04:29] LABS: ALANINE AMINOTRANSFERASE 90 IU/L (13-69); ALBUMIN 4.2 g/dl (3.3-4.9); ALBUMIN/GLOBULIN RATIO 1.07; ALKALINE PHOSPHATASE 108 IU/L (42-121); ANION GAP 14 (5-13); ASPARTATE AMINO TRANSFERASE 69 IU/L (15-46); BILIRUBIN,INDIRECT 0.6 mg/dl (0-1.1); BILIRUBIN,TOTAL 0.6 mg/dl (0.2-1.3); BLOOD UREA NITROGEN 15 mg/dl (7-20); CALCIUM 9.1 mg/dl (8.4-10.2); CARBON DIOXIDE 23 mmol/L (21-31); CHLORIDE 101 mmol/L (97-110); Estimated GFR > 60 mL/min (>60); GLUCOSE 117 mg/dl (70-220); LIPASE 1296 U/L (23-300); POTASSIUM 4.1 mmol/L (3.5-5.1); SODIUM 138 mmol/L (135-144); TOTAL PROTEIN 8.1 g/dl (6.1-8.1)
[2019-02-27] MEDS: morphine 4 MG/ML VIAL IV (05:00)
[2019-02-27] MEDS: ONDANSETRON 4 MG INJ IV (05:00)
[2019-02-27] MEDS ORDERED: ONDANSETRON 4 MG INJ IV ×2 (05:30)
[2019-02-27] MEDS ORDERED: LORAZEPAM 2 MG INJ IV (05:30)
[2019-02-27] MEDS ORDERED: BISACODYL (EC) 5 MG TAB PO (05:30)
[2019-02-27] MEDS ORDERED: ACETAMINOPHEN 325 MG TAB PO ×2 (05:30)
[2019-02-27] MEDS ORDERED: NACL 0.9% 3 ML SYG IV (05:30)
[2019-02-27] MEDS ORDERED: DOCUSATE SODIUM 100 MG CAP PO (05:30)
[2019-02-27 06:25] LABS: ETHANOL < 10.0 mg/dl (0-0)
[2019-02-27] MEDS: SOD CHLORIDE 0.9% 500 ML IV (06:29)
[2019-02-27] MEDS: SOD CHLORIDE 0.9% 1,000 ML IV ×4 (09:55→19:44)
[2019-02-27] MEDS: CEFTRIAXONE 1 GM/50 ML (PMX) 50 ML IVPB (13:27)
[2019-02-27] MEDS: DOCUSATE SODIUM 100 MG CAP PO (18:26)
[2019-02-28 05:17] LABS: ADD MAN DIFF? NO
[2019-02-28] MEDS: DOCUSATE SODIUM 100 MG CAP PO ×2 (05:20→18:01)
[2019-02-28] MEDS: SOD CHLORIDE 0.9% 1,000 ML IV (05:20)
[2019-02-28 05:25] LABS: BASOPHILS % 0.5 % (0.0-2.0); EOSINOPHILS # 0.1 10^3/ul (0.0-0.5); EOSINOPHILS % 2.6 % (0.0-7.0); HEMATOCRIT 36.3 % (37.0-47.0); HEMOGLOBIN 11.9 g/dl (12.0-16.0); LYMPHOCYTES # 1.8 10^3/ul (0.8-2.9); MEAN CORPUSCULAR HEMOGLOBIN 28.5 pg (29.0-33.0); MEAN CORPUSCULAR HGB CONC 32.8 g/dl (32.0-37.0); MEAN CORPUSCULAR VOLUME 87.1 fl (82.0-101.0); MEAN PLATELET VOLUME 10.2 fl (7.4-10.4); MONOCYTE # 0.5 10^3/ul (0.3-0.9); MONOCYTES % 9.1 % (0.0-11.0); NEUTROPHIL # 2.9 10^3/ul (1.6-7.5); NEUTROPHILS % 53.3 % (39.0-77.0); PLATELET COUNT 254 10^3/UL (140-415); RED BLOOD COUNT 4.17 10^6/ul (4.20-5.40); RED CELL DISTRIBUTION WIDTH 13.2 % (11.5-14.5)
[2019-02-28 05:25] LABS: WHITE BLOOD COUNT 5.5 10^3/ul (4.8-10.8)
[2019-02-28 05:54] LABS: ALANINE AMINOTRANSFERASE 87 IU/L (13-69); ALKALINE PHOSPHATASE 84 IU/L (42-121); ASPARTATE AMINO TRANSFERASE 57 IU/L (15-46); TOTAL PROTEIN 6.1 g/dl (6.1-8.1)
[2019-02-28 06:02] LABS: ANION GAP 4 (5-13); BLOOD UREA NITROGEN 11 mg/dl (7-20); CALCIUM 8.7 mg/dl (8.4-10.2); CARBON DIOXIDE 26 mmol/L (21-31); CHLORIDE 109 mmol/L (97-110); CREATININE 0.83 mg/dl (0.44-1.00); Estimated GFR > 60 mL/min (>60); GLUCOSE 90 mg/dl (70-220); MAGNESIUM 2.3 mg/dl (1.7-2.5); PHOSPHORUS 3.7 mg/dl (2.5-4.9); POTASSIUM 4.6 mmol/L (3.5-5.1); SODIUM 139 mmol/L (135-144)
[2019-02-28 06:34] LABS: LIPASE 911 U/L (23-300)
[2019-02-28] MEDS: HYDROmorphONE 0.5 MG/0.5 ML SYG IV (11:38)
[2019-02-28] MEDS: CEFTRIAXONE 1 GM/50 ML (PMX) 50 ML IVPB (13:26)
[2019-03-01] MEDS: HYDROmorphONE 0.5 MG/0.5 ML SYG IV (02:52)
[2019-03-01 05:28] LABS: ADD MAN DIFF? NO
[2019-03-01 05:29] LABS: WHITE BLOOD COUNT 6.5 10^3/ul (4.8-10.8)
[2019-03-01 05:29] LABS: BASOPHILS % 0.5 % (0.0-2.0); EOSINOPHILS # 0.1 10^3/ul (0.0-0.5); EOSINOPHILS % 1.4 % (0.0-7.0); HEMATOCRIT 39.2 % (37.0-47.0); HEMOGLOBIN 12.9 g/dl (12.0-16.0); LYMPHOCYTES # 2.1 10^3/ul (0.8-2.9); LYMPHOCYTES % 32.6 % (15.0-51.0); MEAN CORPUSCULAR HEMOGLOBIN 28.2 pg (29.0-33.0); MEAN CORPUSCULAR HGB CONC 32.9 g/dl (32.0-37.0); MEAN CORPUSCULAR VOLUME 85.6 fl (82.0-101.0); MEAN PLATELET VOLUME 9.9 fl (7.4-10.4); MONOCYTE # 0.6 10^3/ul (0.3-0.9); MONOCYTES % 8.7 % (0.0-11.0); NEUTROPHIL # 3.6 10^3/ul (1.6-7.5); PLATELET COUNT 269 10^3/UL (140-415); RED BLOOD COUNT 4.58 10^6/ul (4.20-5.40); RED CELL DISTRIBUTION WIDTH 12.8 % (11.5-14.5)
[2019-03-01 05:56] LABS: LIPASE 560 U/L (23-300)
[2019-03-01 05:57] LABS: INR 0.98; PROTIME 13.1 Sec (11.9-14.9)
[2019-03-01 06:11] LABS: ANION GAP 9 (5-13); BLOOD UREA NITROGEN 13 mg/dl (7-20); CALCIUM 9.1 mg/dl (8.4-10.2); CARBON DIOXIDE 26 mmol/L (21-31); CHLORIDE 105 mmol/L (97-110); CREATININE 0.77 mg/dl (0.44-1.00); Estimated GFR > 60 mL/min (>60); GLUCOSE 83 mg/dl (70-220); POTASSIUM 4.4 mmol/L (3.5-5.1); SODIUM 140 mmol/L (135-144)
[2019-03-01] MEDS: DOCUSATE SODIUM 100 MG CAP PO ×2 (08:50→17:30)
[2019-03-01] MEDS: CEFTRIAXONE 1 GM/50 ML (PMX) 50 ML IVPB (13:00)
[2019-03-02] MEDS: DOCUSATE SODIUM 100 MG CAP PO ×3 (05:30→21:56)
[2019-03-02 05:56] LABS: ADD MAN DIFF? NO
[2019-03-02 05:58] LABS: WHITE BLOOD COUNT 5.8 10^3/ul (4.8-10.8)
[2019-03-02 05:58] LABS: BASOPHILS % 0.5 % (0.0-2.0); EOSINOPHILS # 0.1 10^3/ul (0.0-0.5); EOSINOPHILS % 1.6 % (0.0-7.0); HEMATOCRIT 37.9 % (37.0-47.0); HEMOGLOBIN 12.5 g/dl (12.0-16.0); LYMPHOCYTES # 1.9 10^3/ul (0.8-2.9); LYMPHOCYTES % 33.1 % (15.0-51.0); MEAN CORPUSCULAR HEMOGLOBIN 27.9 pg (29.0-33.0); MEAN CORPUSCULAR VOLUME 84.6 fl (82.0-101.0); MEAN PLATELET VOLUME 10.3 fl (7.4-10.4); MONOCYTE # 0.5 10^3/ul (0.3-0.9); MONOCYTES % 8.4 % (0.0-11.0); NEUTROPHIL # 3.2 10^3/ul (1.6-7.5); NEUTROPHILS % 55.9 % (39.0-77.0); PLATELET COUNT 280 10^3/UL (140-415); RED BLOOD COUNT 4.48 10^6/ul (4.20-5.40); RED CELL DISTRIBUTION WIDTH 12.3 % (11.5-14.5)
[2019-03-02 06:47] LABS: ANION GAP 9 (5-13); BLOOD UREA NITROGEN 10 mg/dl (7-20); CALCIUM 9.1 mg/dl (8.4-10.2); CARBON DIOXIDE 24 mmol/L (21-31); CHLORIDE 106 mmol/L (97-110); CREATININE 0.74 mg/dl (0.44-1.00); Estimated GFR > 60 mL/min (>60); GLUCOSE 94 mg/dl (70-220); POTASSIUM 4.3 mmol/L (3.5-5.1); SODIUM 139 mmol/L (135-144)
[2019-03-02] MEDS: CEFTRIAXONE 1 GM/50 ML (PMX) 50 ML IVPB (12:47)
[2019-03-02] MEDS: SOD CHLORIDE 0.9% 1,000 ML IV ×3 (14:53→23:00)
[2019-03-02 15:28] LABS: LIPASE 454 U/L (23-300)
[2019-03-02 15:28] LABS: AMYLASE 128 U/L (11-123)
[2019-03-02] MEDS ORDERED: VANCOMYCIN IV PER PHARMACY XX (17:00)
[2019-03-02] MEDS: VANCOMYCIN HCL 1.25 GM in SOD CHLORIDE 0.9% 250 ML IVPB (19:57)
[2019-03-03] MEDS: SOD CHLORIDE 0.9% 1,000 ML IV ×6 (02:42→20:04)
[2019-03-03] MEDS ORDERED: VANCOMYCIN 500 MG (PMX) 100 ML IVPB (08:00)
[2019-03-03] MEDS: VANCOMYCIN 500 MG (PMX) 100 ML IVPB ×2 (08:27→20:04)
[2019-03-03] MEDS: DOCUSATE SODIUM 100 MG CAP PO (17:35)
[2019-03-04] MEDS: SOD CHLORIDE 0.9% 1,000 ML IV ×5 (02:28→19:13)
[2019-03-04] MEDS: DOCUSATE SODIUM 100 MG CAP PO ×2 (04:47→17:30)
[2019-03-04 05:13] LABS: ADD MAN DIFF? NO
[2019-03-04 05:22] LABS: BASOPHILS % 0.7 % (0.0-2.0); EOSINOPHILS # 0.1 10^3/ul (0.0-0.5); HEMATOCRIT 35.2 % (37.0-47.0); HEMOGLOBIN 11.5 g/dl (12.0-16.0); LYMPHOCYTES # 2.1 10^3/ul (0.8-2.9); LYMPHOCYTES % 46.4 % (15.0-51.0); MEAN CORPUSCULAR HEMOGLOBIN 28.3 pg (29.0-33.0); MEAN CORPUSCULAR HGB CONC 32.7 g/dl (32.0-37.0); MEAN CORPUSCULAR VOLUME 86.5 fl (82.0-101.0); MEAN PLATELET VOLUME 10.3 fl (7.4-10.4); MONOCYTE # 0.5 10^3/ul (0.3-0.9); MONOCYTES % 10.9 % (0.0-11.0); NEUTROPHIL # 1.8 10^3/ul (1.6-7.5); NEUTROPHILS % 39.8 % (39.0-77.0); PLATELET COUNT 268 10^3/UL (140-415); RED BLOOD COUNT 4.07 10^6/ul (4.20-5.40); RED CELL DISTRIBUTION WIDTH 12.2 % (11.5-14.5)
[2019-03-04 05:22] LABS: WHITE BLOOD COUNT 4.4 10^3/ul (4.8-10.8)
[2019-03-04 06:03] LABS: ANION GAP 4 (5-13); BLOOD UREA NITROGEN 5 mg/dl (7-20); CARBON DIOXIDE 27 mmol/L (21-31); CHLORIDE 111 mmol/L (97-110); CREATININE 0.72 mg/dl (0.44-1.00); Estimated GFR > 60 mL/min (>60); GLUCOSE 118 mg/dl (70-220); MAGNESIUM 1.9 mg/dl (1.7-2.5); PHOSPHORUS 3.2 mg/dl (2.5-4.9); POTASSIUM 4.4 mmol/L (3.5-5.1); SODIUM 142 mmol/L (135-144)
[2019-03-04 07:44] LABS: VANCOMYCIN,TROUGH 7.1 ug/ml (10.0-20.0)
[2019-03-04] MEDS: VANCOMYCIN 500 MG (PMX) 100 ML IVPB (08:30)
[2019-03-04] MEDS: VANCOMYCIN 750 MG (PMX) 250 ML IVPB (20:25)
[2019-03-05] MEDS: DOCUSATE SODIUM 100 MG CAP PO ×2 (05:22→17:27)
[2019-03-05] MEDS: SOD CHLORIDE 0.9% 1,000 ML IV (05:23)
[2019-03-05 06:11] LABS: ADD MAN DIFF? NO
[2019-03-05 06:19] LABS: BASOPHILS % 0.9 % (0.0-2.0); EOSINOPHILS # 0.2 10^3/ul (0.0-0.5); EOSINOPHILS % 3.3 % (0.0-7.0); HEMATOCRIT 36.9 % (37.0-47.0); LYMPHOCYTES % 43.4 % (15.0-51.0); MEAN CORPUSCULAR HEMOGLOBIN 28.3 pg (29.0-33.0); MEAN CORPUSCULAR HGB CONC 32.5 g/dl (32.0-37.0); MEAN PLATELET VOLUME 10.7 fl (7.4-10.4); MONOCYTE # 0.4 10^3/ul (0.3-0.9); MONOCYTES % 9.3 % (0.0-11.0); NEUTROPHILS % 42.9 % (39.0-77.0); PLATELET COUNT 277 10^3/UL (140-415); RED BLOOD COUNT 4.24 10^6/ul (4.20-5.40); RED CELL DISTRIBUTION WIDTH 12.4 % (11.5-14.5)
[2019-03-05 06:19] LABS: WHITE BLOOD COUNT 4.6 10^3/ul (4.8-10.8)
[2019-03-05 06:41] LABS: LIPASE 335 U/L (23-300)
[2019-03-05 06:46] LABS: PHOSPHORUS 3.9 mg/dl (2.5-4.9)
[2019-03-05 06:46] LABS: MAGNESIUM 1.9 mg/dl (1.7-2.5)
[2019-03-05 06:52] LABS: ANION GAP 7 (5-13); BLOOD UREA NITROGEN 3 mg/dl (7-20); CALCIUM 9.2 mg/dl (8.4-10.2); CARBON DIOXIDE 28 mmol/L (21-31); CHLORIDE 109 mmol/L (97-110); CREATININE 0.67 mg/dl (0.44-1.00); Estimated GFR > 60 mL/min (>60); GLUCOSE 78 mg/dl (70-220); POTASSIUM 4.3 mmol/L (3.5-5.1); SODIUM 144 mmol/L (135-144)
[2019-03-05] MEDS: VANCOMYCIN 750 MG (PMX) 250 ML IVPB (08:12)
== END 2019-03-05 16:50 | disposition home or self-care (01) | DRG 689 ==
LOC: E/R 03:16 → MS1 05:08
DX: N13.6 Pyonephrosis (principal); K85.90 Acute pancreatitis without necrosis or infection, unspecified; I10 Essential (primary) hypertension; K76.0 Fatty (change of) liver, not elsewhere classified; K74.60 Unspecified cirrhosis of liver; M51.27 Other intervertebral disc displacement, lumbosacral region; F41.9 Anxiety disorder, unspecified; Z90.49 Acquired absence of other specified parts of digestive tract
CPT/HCPCS: 36415; 72157; 72158; 74176; 74181; 80048; 80053; 80076; 80202; 80307; 81001; 82150; 83690; 83735; 84100; 85025; 85610; 87086; 96374; 96375; 97116; 97162; 97530; 99285-25

== ENCOUNTER 2019-05-09 10:09 | Day surgery (SDC) | payer OTHER ==
[2019-05-09] MEDS ORDERED: LACTATED RINGER'S 1,000 ML IV (11:30)
[2019-05-09] MEDS ORDERED: CEFTRIAXONE 1 GM/NS 50 ML IVPB (11:30)
[2019-05-09] MEDS ORDERED: FENTAnyl 50 MCG/ML VIAL IV ×2 (12:30)
[2019-05-09] MEDS ORDERED: ONDANSETRON 4 MG INJ IV (12:30)
[2019-05-09] MEDS ORDERED: hydrALAzine 20 MG INJ IV (12:30)
[2019-05-09] MEDS ORDERED: MEPERIDINE 25 MG INJ IV (12:30)
[2019-05-09] MEDS ORDERED: LABETALOL HCL 20MG INJ IV (12:30)
[2019-05-09] MEDS ORDERED: PROPOFOL 20 ML (12:34)
[2019-05-09] MEDS ORDERED: LIDOCAINE 2% (SDV) 5 ML INJ (12:34)
[2019-05-09] MEDS ORDERED: FENTAnyl 50 MCG/ML VIAL (12:34)
[2019-05-09] MEDS ORDERED: METOCLOPRAMIDE 10 MG INJ (12:36)
[2019-05-09] MEDS ORDERED: DEXAMETHASONE 4 MG/ML 5 ML INJ (12:36)
[2019-05-09] MEDS ORDERED: ONDANSETRON 4 MG INJ (12:36)
[2019-05-09] MEDS ORDERED: FAMOTIDINE 20 MG INJ (13:25)
[2019-05-09] MEDS: IOHEXOL 300MG/ML 30 ML BTL (13:36)
[2019-05-09] MEDS: FENTAnyl 50 MCG/ML VIAL IV (13:49)
[2019-05-09] MEDS ORDERED: HYDROCODONE/APAP (5/325) TAB PO (14:00)
== END 2019-05-09 15:10 | disposition home or self-care (01) ==
LOC: SDS 10:09
DX: N13.2 Hydronephrosis with renal and ureteral calculous obstruction (principal); I10 Essential (primary) hypertension
CPT/HCPCS: 52332; 74430; 84703; 87086